=== PATIENT | male | born 1955 | race African-American/Black ===

== ENCOUNTER 2025-05-25 17:56 | Emergency (ER) | payer MEDICARE, OTHER ==
[~2025-05-25] VITALS: Ht 180.3 cm; Wt 77.3 kg
[2025-05-25 18:05] VITALS: BP 147/94; PULSE 84; RESP 18; TEMP 98; O2SAT 99
[2025-05-25] MEDS: ACETAMINOPHEN 500 MG TABLET PO ONE (18:46)
== END 2025-05-25 21:28 | disposition home or self-care (01) ==
LOC: EMS 17:58
DX: M25.561 Pain in right knee (principal); F41.9 Anxiety disorder, unspecified; F32.A Depression, unspecified; F12.90 Cannabis use, unspecified, uncomplicated
CPT/HCPCS: 93971; 99284; 73562-TC; Z7502; Z7610